=== PATIENT | male | born 1960 | race Caucasian/White ===

== ENCOUNTER 2016-09-18 14:07 | Emergency (ER) | payer OTHER ==
[2016-09-18 14:59] LABS: BASOPHIL 0.1 % (0-2); EOSINOPHIL 1.6 % (0-5); HCT 39.6 % (42.0-52.0); HGB 13.7 g/dl (13.2-18.0); LYMPHOCYTE 12.6 % (15-48); MCH 28.9 pg (25.0-31.0); MCHC 34.6 g/dL (32.0-36.0); MCV 83.5 fL (78.0-100.0); MONOCYTE 7.9 % (0-12); MPV 11.4 fL (6.0-9.5); NEUTROPHIL 77.8 % (41-80); PLT 185 K/uL (150-400); RBC 4.74 M/uL (4.70-6.00); RDW 13.1 % (11.5-14.0)
[2016-09-18 15:08] LABS: ALBUMIN 4.5 g/dL (3.5-5.0); BILIRUBIN - TOTAL 0.3 mg/dL (0.1-1.0); CREATININE 1.1 mg/dL (0.7-1.2); GLOBULIN (CALCULATION) 1.6 g/dL (2.2-4.2); POTASSIUM 4.5 mmol/L (3.5-5.1); TOTAL PROTEIN 6.1 g/dL (6.4-8.3)
== END 2016-09-18 17:35 | disposition home or self-care (01) ==
LOC: FER 14:07
PROVIDERS: Internal Medicine
DX: R07.9 Chest pain, unspecified (principal); F41.9 Anxiety disorder, unspecified; F32.9 Major depressive disorder, single episode, unspecified; E03.9 Hypothyroidism, unspecified; Z88.2 Allergy status to sulfonamides
CPT/HCPCS: 36415; 70450; 71020; 80053; 84484; 85025; 93005

== ENCOUNTER 2016-09-28 10:26 | Emergency (ER) | payer OTHER ==
[2016-09-28 11:19] LABS: BASOPHIL 0.2 % (0-2); EOSINOPHIL 0.4 % (0-5); HCT 41.3 % (42.0-52.0); LYMPHOCYTE 19.3 % (15-48); MCH 28.7 pg (25.0-31.0); MCHC 36.3 g/dL (32.0-36.0); MCV 79.1 fL (78.0-100.0); MONOCYTE 14.5 % (0-12); MPV 11.4 fL (6.0-9.5); NEUTROPHIL 65.6 % (41-80); PLT 158 K/uL (150-400); RBC 5.22 M/uL (4.70-6.00); WBC 4.9 K/uL (4.0-10.5)
[2016-09-28 11:21] LABS: INR 0.95 (0.9-1.2); PROTHROMBIN TIME 12.3 SECONDS (11.7-14.0); PTT 28.4 SECONDS (23.2-31.4)
[2016-09-28 11:38] LABS: BILIRUBIN NEGATIVE (NEGATIVE); BLOOD NEGATIVE Ery/uL (NEGATIVE); CLARITY CLEAR (CLEAR); COLOR YELLOW (YELLOW); GLUCOSE (U) NORMAL (NORMAL); KETONE (U) TRACE mg/dL (NEGATIVE); LEUKOCYTES NEGATIVE Leu/uL (NEGATIVE); NITRITE NEGATIVE (NEGATIVE); PROTEIN TRACE (LOW) mg/dL (NEGATIVE); SPECIFIC GRAVITY 1.025 (1.001-1.030)
[2016-09-28 11:47] LABS: LACTIC ACID 2.1 mmol/L (0.5-2.2)
[2016-09-28 11:54] LABS: BACTERIA 1+
[2016-09-28 12:03] LABS: FT4 (FREE T4) 1.88 ng/dL (0.93-1.70); TSH (THYROID STIM HORMONE) 2.81 uIU/mL (0.270-4.200)
== END 2016-09-28 14:09 | disposition home or self-care (01) ==
LOC: FER 10:26
PROVIDERS: Emergency Medicine
DX: E86.0 Dehydration (principal); J32.9 Chronic sinusitis, unspecified; R00.1 Bradycardia, unspecified; R82.90 Unspecified abnormal findings in urine; E03.9 Hypothyroidism, unspecified; Z88.2 Allergy status to sulfonamides
CPT/HCPCS: 36415; 71020; 81001; 83605; 84439; 84443; 84484; 85025; 85610; 85730; 87040; 87088; 87804; 87899; 93005

== ENCOUNTER 2016-10-28 03:08 | Inpatient (IN) | payer OTHER ==
[~2016-10-28] VITALS: Ht 175 cm; Wt 78.5 kg
[2016-10-28 04:06] LABS: BILIRUBIN - TOTAL 0.7 mg/dL (0.1-1.0); GLOBULIN (CALCULATION) 2.2 g/dL (2.2-4.2); LACTIC ACID 1.2 mmol/L (0.5-2.2); TOTAL PROTEIN 6.2 g/dL (6.4-8.3)
[2016-10-28 04:11] LABS: ANISOCYTOSIS MODERATE; BAND 5 % (0-10); EOSINOPHIL(M) 1 % (0-5); HCT 41.4 % (42.0-52.0); HGB 14.3 g/dl (13.2-18.0); LYMPHOCYTE(M) 6 % (15-48); MCHC 34.5 g/dL (32.0-36.0); MONOCYTE(M) 6 % (0-12); NEUTROPHILS(M) 82 % (41-80); PLATELET ESTIMATE NORMAL; PLT 155 K/uL (150-400); RBC 4.93 M/uL (4.70-6.00); TOTAL CELL COUNT 100; WBC 18.8 K/uL (4.0-10.5)
[2016-10-28 04:12] LABS: PLATELET MORPHOLOGY NORMAL
[2016-10-29 06:37] LABS: BASOPHIL 0.2 % (0-2); HCT 37.7 % (42.0-52.0); HGB 13.1 g/dl (13.2-18.0); LYMPHOCYTE 9.5 % (15-48); MCHC 34.7 g/dL (32.0-36.0); MCV 83.6 fL (78.0-100.0); MPV 10.7 fL (6.0-9.5); NEUTROPHIL 76.3 % (41-80); PLT 145 K/uL (150-400); RBC 4.51 M/uL (4.70-6.00)
[2016-10-29 07:02] LABS: ALBUMIN 3.5 g/dL (3.5-5.0); BILIRUBIN - TOTAL 0.3 mg/dL (0.1-1.0); CREATININE 0.9 mg/dL (0.7-1.2); TOTAL PROTEIN 5.5 g/dL (6.4-8.3)
[2016-10-30 05:52] LABS: HCT 37.7 % (42.0-52.0); MCH 28.6 pg (25.0-31.0); MCHC 34.5 g/dL (32.0-36.0); MCV 82.9 fL (78.0-100.0); MPV 10.5 fL (6.0-9.5); RBC 4.55 M/uL (4.70-6.00); RDW 13.8 % (11.5-14.0); WBC 5.6 K/uL (4.0-10.5)
[2016-10-30 06:25] LABS: CREATININE 0.9 mg/dL (0.7-1.2); POTASSIUM 4.3 mmol/L (3.5-5.1)
[2016-10-30] MEDS ORDERED: SYNTHROID88 MCG PO (15:33)
[2016-10-30] MEDS ORDERED: ZOFRAN4 MG PO (16:13)
[2016-10-30] MEDS ORDERED: ALLEGRA (16:13)
[2016-10-30] MEDS ORDERED: CELEXA20 MG PO (16:14)
[2016-10-30] MEDS ORDERED: VANCOCIN HCL250 MG PO (16:15)
[2016-10-30] MEDS ORDERED: FLAGYL500 MG PO (16:47)
== END 2016-10-30 13:01 | disposition home or self-care (01) | DRG 372 ==
LOC: FER 03:08 → FMS 05:22
PROVIDERS: Emergency Medicine; Internal Medicine Cardiovascular Disease; ADMIT Internal Medicine
DX: A04.7 Enterocolitis due to Clostridium difficile (principal); D83.9 Common variable immunodeficiency, unspecified; E87.1 Hypo-osmolality and hyponatremia; F32.9 Major depressive disorder, single episode, unspecified; E03.9 Hypothyroidism, unspecified; F41.9 Anxiety disorder, unspecified; L40.9 Psoriasis, unspecified; A07.1 Giardiasis [lambliasis]; E86.0 Dehydration; J32.9 Chronic sinusitis, unspecified; Z88.1 Allergy status to other antibiotic agents; Z88.2 Allergy status to sulfonamides; Z79.899 Other long term (current) drug therapy
CPT/HCPCS: 36415; 70486; 71010; 80048; 80053; 83605; 85025; 87040; 87045; 87046; 87205; 87328; 87337; 87389; 87493; J1956; J2405

== ENCOUNTER → 2021-08-29 | Day surgery (SDC) | payer MEDICARE ==
[~2021-08-29] VITALS: Ht 177.8 cm; Wt 78.5 kg
[~2021-08-29] MED LIST: ALLEGRA; CELEXA20 MG PO; FLAGYL500 MG PO; SYNTHROID88 MCG PO; VANCOCIN HCL250 MG PO; ZESTRIL5 MG PO; ZOFRAN4 MG PO
== END | disposition home or self-care (01) ==
LOC: FAS 08-15 07:30
DX: K58.0 Irritable bowel syndrome with diarrhea (principal); K92.1 Melena; Z86.19 Personal history of other infectious and parasitic diseases; D83.9 Common variable immunodeficiency, unspecified; I10 Essential (primary) hypertension; E03.9 Hypothyroidism, unspecified; Z88.1 Allergy status to other antibiotic agents; Z88.2 Allergy status to sulfonamides; Z79.899 Other long term (current) drug therapy; Z72.89 Other problems related to lifestyle
CPT/HCPCS: J2250; J2704; J7120